=== PATIENT | male | born 1950 | race Caucasian/White ===

== ENCOUNTER 2018-11-25 04:24 | Observation (INO) | payer OTHER, MEDICARE ==
[~2018-11-25] VITALS: Ht 172.7 cm; Wt 92.5 kg
[2018-11-25] MEDS ORDERED: NORCO 5-325 TA1 EACH PO (06:36)
[2018-11-25] MEDS ORDERED: CRUTCH1 EACH (06:54)
--- NOTE | 2018-11-25 09:10 | NUR ---
PT ARRIVED TO THE CCU APPROXIMATLY AT 0900. PT IS ALERT AND ORIENTED X4, ABLE TO COMMUNICATE CLEARLY. PT ABLE TO STAND AND PIVOT TO THE BEDSIDE COMMODE, ABLE TO VOID. PT STAND AND PIVOT TO BED. PT STATES PAIN IS WELL CONTROLLED " LONG I DON'T MOVE, OR BREATH TO DEEP". PT IV SITE INTACT, NO REDNESS OR SWELLING NOTED, FLUSHES EASILY. PT VITALS WNL AT THIS TIME. PT LEFT WRIST AND HAND DRESSED IN FANNY BANDAGE, RT ANKLE ALSO DRESSED IN FANNY BANDAGE. PT STATES HE HAS FEELING IN ALL TOES AND FINGERS, HOWEVER HAS REYNAUDS DISEASE.
--- NOTE | 2018-11-25 09:48 | NUR ---
IV SITE INTACT, NO REDNESS OR SWELLING NOTED, FLUIDS AND FLUSHES INFUSE EASILY. PT ALERT AND ORIENTED X4, C/O PAIN GENERALLIZED IN ABD, LEFT WRIST, AND RT FOOT 08/08, 0.4 MG IV DILAUDID GIVEN. PT DENIES NAUSEA, 4 MG ZOFRAN GIVEN PT HAS NOT YET HAD DILAUDID A PREVENTATIVE. PT DENIES SOB, BUT REPORTS VERY PAINFUL TO TAKE A DEEP BREATH.
[2018-11-25] MEDS ORDERED: PREDNISONE5 MG PO (10:17)
[2018-11-25] MEDS ORDERED: DICLOFENAC SODI75 MG PO (10:17)
[2018-11-25] MEDS ORDERED: FUROSEMIDE20 MG PO (10:18)
[2018-11-25] MEDS ORDERED: HYDROXYCHLOROQ200 MG PO (10:18)
--- NOTE | 2018-11-25 14:20 | NUR ---
pt left the floor with imaging personel for ultrasound of rt knee. pt alert and oriented x4, denies pain, nausea, and sob at this time. ice pack removed for imaging.
--- NOTE | 2018-11-25 15:52 | NUR ---
MED REC COMPLETE WITH BHARATI CHONG MEDICATION HISTORY AND PATIENT INTERVIEW.
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
--- NOTE | 2018-11-25 17:25 | NUR ---
PT STANDING AT THE BEDSIDE TO USE URINAL. ONE PERSON ASSIST TO STAND, PT HAS WALKER TO ASSIST WITH STANDING. LINENS ON BED CHANGED PT HAD BEEN DIAPHARETIC. PT GIVEN COOL WASH CLOTH FOR FACE. PT ALERT AND ORIENTED X4. PT REPORTS PAIN IS 3/10 AND DENIES NEED FOR PAIN MEDICATION. PT ASSISTED BACK TO BED, ICE PACKS PLACED ON RT ANKLE AND RT KNEE, AND LEFT WRIST. PT HAS CALL LIGHT WITHIN REACH.
--- NOTE | 2018-11-25 19:39 | NUR ---
PT HAD A GOOD SHIFT. ICE HAS BEEN APPLIED TO LEFT WRIST AND RT ANKLE/KNEE FOR MOST OF THE DAY. PT DIET ADVANCED TO CLEAR LIQUIDS THIS AFTERNOON, NEDA WELL. PT ABLE TO STAND AT THE BEDSIDE WITH ONE PERSON ASSIST AND WALKER. PT ALERT AND ORIENTED X4 WHEN AWAKE, FALLS ASLEEP EASILY. PAIN IS WELL CONROLED WITH TWO TABS PO NORCO.
--- NOTE | 2018-11-25 20:30 | NUR ---
FULL BODY ASSESMENT DONE. PATIENT UP TO SIDE OF BED TO USE URINAL, URINE APPEARS CONCENTRATED. RATES PAIN 6/10 ON PAIN SCALE, ADMINISTERED 2 TABS NORCO RT INSTRUCTED PATIENT WITH IS, PATIENT DEMONSTRATES USING WELL. WAFER RISES TO 900 MAR. EDUCATED WITH CONCERNS OF DEVELOPING PNEAMONIA, PATIENT VERBALIZES UNDERSTANDING. BRACE IN POSITION ON RIGHT KNEE, PEDAL PULSE STRONG HIREN. APPLIED HEEL PROTECTER TO RIGHT HEEL OVER FANNY WRAP. PILLOW PLACED UNDER LEFT WRIST. ENCOURAGED PATIENT TO DRINK FLUIDS, PROVIED WITH BROTH.
--- NOTE | 2018-11-26 | NUR ---
PATIENT RESTING WITH EYES CLOSED. VS STABLE. CALL LIGHT WITHIN REACH.
--- NOTE | 2018-11-26 02:32 | NUR ---
LUNG SOUNDS CLEAR THROUGHOUT, PATIENT USING IS. REPOSITIONED PATIENT TO SIDE. CALL LIGHT WITHIN REACH.
--- NOTE | 2018-11-26 04:00 | NUR ---
PATIENT COMPLAINTS OF PAIN 8/10 ON PAIN SCALE, DESCRIBED SHARP AND STABBING WITH WRIST AND DEEP BREATHING WITH IS. ADMINISTERED 0.3 MG IV DILAUDID AND 2 TABS OF NORCO. PATIENT RESTING BACK, PROVIDED WARM BLANKET AND ICE WATER.
--- NOTE | 2018-11-26 06:00 | NUR ---
PATIENT RESTING WITH EYES CLOSED, RR 7, WOKE PATIENT AND SAT UP AT EDGE OF BED. PATIENT REPORTS PAIN IMPROVED, RR NOW 12. UP TO BSC, PATIENT STATED " I AM FEELING LIKE I COULD GET UP TO THE CHAIR". ASSISTED PATIENT TO RECLINER.
--- NOTE | 2018-11-26 08:36 | NUR ---
CALL TO DR CABELLO FOR DIET CHANGE AND ADD SENNA TO ORDERS
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
--- NOTE | 2018-11-26 08:43 | NUR ---
PT RESTING IN BED. MEDICATED WITH 2 NORCO FOR 8/10 PAIN TO CHEST WALL AND RIBS. PT ABLE TO STAND AT BEDSIDE WITH STAND BY ASSIST TO ADJUST IN BED.
--- NOTE | 2018-11-26 09:15 | NUR ---
Called [facility] to order a platform walker for pt per .
--- NOTE | 2018-11-26 09:16 | NUR ---
DR CABELLO AND DR DURAND IN TO SEE PT
--- NOTE | 2018-11-26 09:30 | NUR ---
[facility] called back to say they would be here with the platform walker in aprox. an hour
--- NOTE | 2018-11-26 10:37 | NUR ---
PT UP TO SHOWER CHAIR TO MOVE INTO RESTROOM. PT TRANSFERRED TO TOILET FOR BM. PT TOLERTATED WELL. LINENS CHANGED. IV SITE CHANGED DUE TO ORIGINAL BEING FIELD START
--- NOTE | 2018-11-26 11:13 | NUR ---
PT SITTING UP IN CHAIR. DENIES NEEDS AT THIS TIME. PT ABLE TO DO AM CARES FOR SELF. PTS SON ARRIVED TO ROOM. FILLED IN ON PLAN AND QUESTIONS ANSWERED
--- NOTE | 2018-11-26 11:13 | NUR ---
[facility] STATES THEY WILL NOT ARRIVE WITH WALKER UNTIL 1600
--- NOTE | 2018-11-26 11:25 | NUR ---
CALL TO DR DURAND SO HE CAN UPDATE PTS SON OVER THE PHONE.
--- NOTE | 2018-11-26 12:24 | NUR ---
PT CONTINUES SITTING UP IN CHAIR. VISITING WITH SON
--- NOTE | 2018-11-26 12:32 | NUR ---
REPORT CALLED TO ALFRED MCDOWELL ON THE MEDICAL SURGICAL FLOOR
--- NOTE | 2018-11-26 12:54 | NUR ---
MADDIE FROM PHYSICAL THERAPY IN TO WORK WITH PT. PT ABLE TO AMBULATE TO MED SURG WITHNEW WALKER. SECONDARY REPORT TO ALFRED MCDOWELL.
--- NOTE | 2018-11-26 13:01 | NUR ---
PT TRASNFERS FROM ROOM 126 IN CCU TO ROOM 115 ON MED SURGE WITH SLOW BUT STEADY GAIT WITH USE OF WALKER. FAMILY AT BEDSIDE. PT EXPRESSED THAT HE HOPES TO BE DISCHARGED TODAY SO HIS HE AND HIS SON CAN GET BACK TO [facility]. ASSESSMENT COMPLETED. PT RESTING AT SIDE OF BED WORKING WITH PT. NO FURTHER NEEDS VOICED.
--- NOTE | 2018-11-26 13:19 | NUR ---
pt reports 6/10 pain generalized aching. norco c2 tabs administered po per pt request. warm blanket provided call light and h20 in [facility]. in to see patient.
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
--- NOTE | 2018-11-26 16:05 | NUR ---
Pt's personal walker was delivered to him from [facility]. Pt ambulates to door of room and then to bathroom with slow but steady gait with SBA and his newly delivered walker. Pt appeared to tolorate ambulation well and was assisted back to chair. call light and h20 in reach and pt covered with blanket for comfort. Pt states "I feel a lot more comfortable with this equipment than i did with the one physical therapy had me using, it was too wobbly but this one feels solid and I am very comfortable walking with it."
[2018-11-26] MEDS ORDERED: NORCO 10-325 T1 EACH PO (16:23)
[2018-11-26] MEDS ORDERED: XARELTO10 MG PO (16:24)
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
--- NOTE | 2018-11-26 20:00 | NUR ---
DELIVERED SANDWICH BOX TO PT AND REFILLED HIS WATER. HE IS SITTING AT THE EDGE OF THE BED EATING AT THIS TIME. CALL LIGHT IS WITHIN REACH.
--- NOTE | 2018-11-26 20:00 | NUR ---
PATIENT RESTING QUIETLY IN BED WATCHING TV. PATIENT'S WATER GLASS FILLED AND HELPED TO THE BATHROOM AND BACK 1PA WITH SPECIAL ARMED WALKER. PATIENT NOT NEEDING PAIN MEDS AT THIS TIME.
--- NOTE | 2018-11-26 21:54 | NUR ---
VITALS AND I&OS DONE AND CHARTED. BEDSIDE TABLE AND CALL LIGHT IN REACH.
--- NOTE | 2018-11-26 22:00 | NUR ---
PATIENT READY FOR BED. PM MEDS GIVEN INCLUDING 2 PO NORCO FOR 8/10 RT LEG AND LEFT ARM PAIN. VS HAVE BEEN STABLE PATIENT GOING TO TRY AND GET SOME SLEEP.
--- NOTE | 2018-11-26 23:55 | NUR ---
PATIENT RESTING QUIETLY SUPINE, RESPIRATIONS REGULAR AND EVEN AT A RATE OF 16-18BPM. NO S/S OF DISTRESS OR DISCOMFORT NOTED. EYES CLOSED AND CALL LIGHT IN REACH.
--- NOTE | 2018-11-27 02:00 | NUR ---
PATIENT RESTING EYES CLOSED, RESPIRATIONS REGULAR AND EVEN, RESP RATE 16. NO SIGNS OR SYMPTOMS OF DISTRESS. CALL LIGHT IN REACH.
--- NOTE | 2018-11-27 03:26 | NUR ---
PATIENT RESTING QUIETLY, EYES CLOSED , RESPIRATIONS REGULAR AND EVEN, PATIENT NOT HAVING ANY PAIN AT THIS TIME AND SAYS HE DOES NOT NEED PAIN MEDS AT THIS TIME. ASSESSMENT IS ESSENTIALLY THE SAME 1ST SHIFT ASSESSMENT PATIENT IS GOING TO TRY AND GET SOME MORE SLEEP.
--- NOTE | 2018-11-27 05:30 | NUR ---
PATIENT CONTINUES TO REST QUIETLY ON HIS RIGHT SIDE. RESPIRATIONS REGULAR AND EVEN AT A RATE OF 16. NO S/S OF DISTRESS AND CALL LIGHT IN REACH.
--- NOTE | 2018-11-27 07:10 | NUR ---
PATIENT'S PAIN HAS BEEN PRETTY WELL CONTROLLED THROUGH THE SHIFT WITH 2 NORCO AT EVENING MED PASS AND AND 1 NORCO AT 0705, PATIENT IS CURRENTLY UP TRYING TO HAVE A BM, BUT HAS ONLY BEEN ABLE TO PASS GAS. LUNGS ARE CLEAR BOWEL TONES ACTIVE. INFORMD PATIENT I WOULD DISCUSS GETTING A LAXATIVE FOR HIM WITH THE AM NURSE IT IS SHIFT CHANGE AND A PHYSICIAN WILL HAVE TO BE CALLED. PATIENT VERBALIZED UNDER STANDING.
--- NOTE | 2018-11-27 07:22 | NUR ---
RECIEVED BEDSIDE REPORT FROM JULY PERRY. PT DENIED NEEDS AT THIS TIME, DENIED NEED FOR PAIN MEDICATION. PT IN BED, PERSONAL SUPPLIES AND CALL LIGHT IN REACH.
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
--- NOTE | 2018-11-27 08:27 | NUR ---
PT UP TO BATHROOM WITH WALKER, SITTING ON TOILET, REQUIRED STANDBY ASSIST. PT REMINDED TO USE CALL LIGHT WHEN FINISHED BEFORE GETTING UP. PT AGREED.
--- NOTE | 2018-11-27 09:01 | NUR ---
DR. CABELLO IN TO SEE PT. DISCUSSING PLAN OF CARE. PT ATE BREAKFAST. DENIED NEED FOR PAIN MEDICATION AT THIS TIME.
--- NOTE | 2018-11-27 10:05 | NUR ---
PT AND HIS SON GIVEN DISCHARGE INSTRUCTIONS. QUESTIONS ASKED AND ANSWERED. PT VERBALIZED UNDERSTANDING. VS OBTAINED, STABLE. PT TOOK A SHOWER PRIOR TO RECIEVING D/D INSTRUCTIONS, WITH ASSISTANCE FROM HUMAN RESOURCES BENEFITS MANAGER IN WRAPPING LEFT ARM, RIGHT LEG. PT DRESSED IN STREET CLOTHES. SEEN BY DARIAN, PHYSICAL THERAPIST, WHO REPORTED THAT PT IS CLEAR TO D/C. CLAIRE, PHARMACIST CURRENTLY IN ROOM WITH PT GIVING MEDICATION EDUCATION.
== END 2018-11-27 10:15 | disposition home or self-care (01) ==
LOC: ED 04:24 → CCU 04:25 → ED 04:25 → CCU 13:28 → MS 11-26 12:35
PROVIDERS: ADMIT Colon & Rectal Surgery
DX: S52.502A Unspecified fracture of the lower end of left radius, initial encounter for closed fracture (principal); S52.602A Unspecified fracture of lower end of left ulna, initial encounter for closed fracture; S82.141A Displaced bicondylar fracture of right tibia, initial encounter for closed fracture; S90.01XA Contusion of right ankle, initial encounter; S20.219A Contusion of unspecified front wall of thorax, initial encounter; S30.1XXA Contusion of abdominal wall, initial encounter; M19.90 Unspecified osteoarthritis, unspecified site; K44.9 Diaphragmatic hernia without obstruction or gangrene; S60.221A Contusion of right hand, initial encounter; K57.90 Diverticulosis of intestine, part unspecified, without perforation or abscess without bleeding; K80.20 Calculus of gallbladder without cholecystitis without obstruction; I10 Essential (primary) hypertension; I25.10 Atherosclerotic heart disease of native coronary artery without angina pectoris; R60.0 Localized edema; E78.00 Pure hypercholesterolemia, unspecified; I73.00 Raynaud's syndrome without gangrene; V57.5XXA Driver of pick-up truck or van injured in collision with fixed or stationary object in traffic accident, initial encounter; Y92.411 Interstate highway as the place of occurrence of the external cause; Z79.52 Long term (current) use of systemic steroids; Z79.899 Other long term (current) drug therapy; Z79.1 Long term (current) use of non-steroidal anti-inflammatories (NSAID)
CPT/HCPCS: 36415; 71045; 71260; 73110; 73560; 73610; 73700; 74177; 80053; 82150; 82550; 83690; 85025; 86850; 86900; 86901; 96374; 96375; 96376; 97162; 99285-25; C9113; G0378; G0480; G8978; G8979; J1170; J2405; J7030; J7120; J7512; Q9967